=== PATIENT | female | born 2000 | race Caucasian/White ===

== ENCOUNTER → 2020-01-24 | Outpatient (REF) | payer OTHER, MEDICAID | LOC: M PLALAB 14:03 | PROVIDERS: ATTEND Advanced Practice Midwife | DX: N91.2 Amenorrhea, unspecified (principal) ==

== ENCOUNTER → 2020-01-26 | Outpatient (REF) | payer OTHER, MEDICAID | LOC: M LABSMT 16:48 | PROVIDERS: ATTEND Advanced Practice Midwife | DX: N91.2 Amenorrhea, unspecified (principal) ==

== ENCOUNTER → 2020-01-28 | Outpatient (REF) | payer OTHER, MEDICAID | LOC: M PLALAB 15:05 | PROVIDERS: ATTEND Advanced Practice Midwife | DX: O20.0 Threatened abortion (principal); Z3A.00 Weeks of gestation of pregnancy not specified ==

== ENCOUNTER → 2020-01-31 | Outpatient (REF) | payer MEDICAID, OTHER | LOC: M PLALAB 12:20 | PROVIDERS: ATTEND Advanced Practice Midwife | DX: O20.0 Threatened abortion (principal); Z3A.00 Weeks of gestation of pregnancy not specified ==

== ENCOUNTER → 2020-02-01 | Outpatient (CLI) | payer OTHER, MEDICAID | LOC: M LABSMTC 09:36 | PROVIDERS: ATTEND Anesthesiology | DX: Z01.812 Encounter for preprocedural laboratory examination (principal); Z20.828 Contact with and (suspected) exposure to other viral communicable diseases ==

== ENCOUNTER 2020-02-02 06:00 | Day surgery (SDC) | payer OTHER ==
[~2020-02-02] VITALS: Ht 157.5 cm; Wt 54.0 kg
[2020-02-02 06:39] LABS: HEMATOCRIT 37.9 % (36.0-47.0); HEMOGLOBIN 12.7 g/dl (12.0-15.5); MEAN CORPUSCULAR HEMOGLOBIN 28.5 pg (27.0-33.0); MEAN CORPUSCULAR HGB CONC 33.5 g/dl (32.0-36.5); PLATELET COUNT, AUTOMATED 265 10^3/uL (150-450); RED BLOOD COUNT 4.46 10^6/uL (4.00-5.40); WHITE BLOOD COUNT 6.8 10^3/uL (4.0-10.0)
[2020-02-02] MEDS ORDERED: LR 1,000 ML IV ONE (07:00)
[2020-02-02] MEDS ORDERED: LIDOCAINE 1% SDV 30ML VIAL As Ordered ONE (07:15)
[2020-02-02] MEDS ORDERED: LIDOCAINE 2% 100MG/5ML SDV (FOR ANES.) As Ordered ONE (07:33)
[2020-02-02] MEDS ORDERED: ONDANSETRON 4MG/2ML VIAL As Ordered ONE (07:33)
[2020-02-02] MEDS ORDERED: fentaNYL 100 MCG/2 ML INJECTION (J3010) As Ordered ONE (07:33)
[2020-02-02] MEDS ORDERED: propofoL 200 MG/20 ML VIAL As Ordered ONE (07:33)
[2020-02-02] MEDS ORDERED: MIDAZOLAM INJ 2MG/2ML VIAL (J2250 PER 1MG) As Ordered ONE (07:33)
[2020-02-02] MEDS ORDERED: dexameTHASONE 4 MG/ML 1ML VIAL (J1100 PER 1MG) As Ordered ONE (07:33)
[2020-02-02] MEDS ORDERED: KETOROLAC 60MG 2ML VIAL As Ordered ONE (08:00)
[2020-02-02] MEDS ORDERED: METHYLERGONOVINE MALEATE 0.2 MG/ML VIAL (J2210) As Ordered ONE (08:19)
[2020-02-02] MEDS ORDERED: SILVER NITRATE APPLICATOR As Ordered ONE (08:22)
[2020-02-02] MEDS ORDERED: LR 1,000 ML IV SCH (09:15)
[2020-02-02] MEDS ORDERED: fentaNYL 100 MCG/2 ML INJECTION (J3010) IV PRN (09:15)
[2020-02-02] MEDS ORDERED: oxyCODONE 5MG TAB PO PRN (09:15)
[2020-02-02] MEDS ORDERED: ONDANSETRON 4MG/2ML VIAL IV PRN (09:15)
[2020-02-02] MEDS ORDERED: HYDROMORPHONE HCL 0.5 MG/ 0.5 ML SYRINGE (J1170 PER 1) IV PRN (09:15)
[2020-02-02 10:05] VITALS: BP 111/52
--- NOTE | 2020-02-02 14:18 | ROOPDOC ---
[facility] Report Of Operation Report of Operation DATE OF PROCEDURE: 02/02/20 DATE OF PROCEDURE: 12/24/2017 PREOPERATIVE DIAGNOSIS: Intrauterine embryonic demise. POSTOPERATIVE DIAGNOSIS: Intrauterine embryonic demise. PROCEDURE: Dilation with suction and curettage. SURGEON: Marian Oro MD PROSTHETIC LAB TECHNICIAN: None. ANESTHESIA: General via laryngeal mask airway. ESTIMATED BLOOD LOSS: 100 mL. INTRAVENOUS FLUIDS: 1 liter of lactated Ringer solution. URINE OUTPUT: Was not obtained. PREOPERATIVE ANTIBIOTICS: None. OPERATIVE FINDINGS: Patient sounded to approximately 9 cm, moderate amounts of tissue obtained on suction and curettage. SPECIMENS: Products of conception. DESCRIPTION OF OPERATION: After informed consent was obtained and written consent was reviewed, the patient was taken to the operating room where general via laryngeal mask airway anesthesia was obtained. She was then placed in the lithotomy position, was prepped and draped in a normal sterile fashion. A time-out in the operating room was then performed identifying the patient, procedure to be performed as well as drug allergies. A bivalve speculum was then placed revealing the cervix. The anterior lip of the cervix was grasped with a single-tooth tenaculum. The uterus was then sounded to 9 cm. The cervix was then sequentially dilated using Hanks dilators. A #9 curved suction curette was then advanced through the cervical os to the level of the fundus. This was attached to suction. Suction was then deployed. The uterus was curetted in a 360 degree fashion. A moderate amount of tissue was obtained. The suction curette was then removed. Sharp curettage was then advanced through the cervical os. The uterus was then again curetted in a 360 degrees fashion. A final pass of the suction curette was then performed productive of only minimal amounts of blood. The single-tooth tenaculum was then removed. Tenaculum sites were noted to be hemostatic. The speculum was removed. The patient was then taken out of lithotomy position, was awakened from general anesthesia and taken to recovery in stable condition. Counts were correct. MARIAN ORO MD. Feb 02, 2020 14:18
[2020-02-02] MEDS ORDERED: KETOROLAC 30 MG/ML 1ML VIAL IV SCH (16:00)
== END 2020-02-02 10:05 | disposition home or self-care (01) ==
LOC: M SDC 06:00
PROVIDERS: ATTEND Obstetrics & Gynecology
DX: O02.1 Missed abortion (principal)
CPT/HCPCS: 36415; 59820; 85027; 86850; 86900; 86901; 88305; J1100; J1885; J2210; J2250; J2405; J3010

== ENCOUNTER → 2020-02-17 | Outpatient (REF) | payer MEDICAID, OTHER | LOC: M PLALAB 08:43 | PROVIDERS: ATTEND Obstetrics & Gynecology | DX: Z48.89 Encounter for other specified surgical aftercare (principal) ==

== ENCOUNTER → 2020-06-05 | Outpatient (REF) | payer OTHER, MEDICAID ==
[2020-06-05 11:29] LABS: CHOLESTEROL RISK RATIO 2.381 (<5)
== END ==
LOC: M SFHCPLAZ 09:13
PROVIDERS: ATTEND Family Medicine
DX: Z13.220 Encounter for screening for lipoid disorders (principal)

== ENCOUNTER → 2020-06-26 | Outpatient (REF) | payer OTHER ==
[2020-06-26 13:32] LABS: HCG, SERUM QUALITATIVE NEGATIVE (NEGATIVE)
== END ==
LOC: M SFHCPLAZ 09:03
PROVIDERS: ATTEND Family Medicine
DX: Z00.00 Encounter for general adult medical examination without abnormal findings (principal)

== ENCOUNTER 2020-07-23 10:42 | Emergency (ER) | payer OTHER ==
[~2020-07-23] VITALS: Ht 157.5 cm; Wt 48.8 kg
[2020-07-23 11:35] LABS: BASO % 0.4 % (0.0-1.0); EOS # 0.1 10^3/uL (0.0-0.5); EOS % 1.7 % (0.0-3.0); HEMATOCRIT 42.3 % (36.0-47.0); HEMOGLOBIN 13.8 g/dl (12.0-15.5); LYMPH # 1.4 10^3/uL (1.5-5.0); LYMPH % 30.1 % (24.0-44.0); MEAN CORPUSCULAR HEMOGLOBIN 28.2 pg (27.0-33.0); MEAN CORPUSCULAR HGB CONC 32.6 g/dl (32.0-36.5); MEAN CORPUSCULAR VOLUME 86.5 fl (80.0-96.0); MONO # 0.5 10^3/uL (0.0-0.8); MONO % 11.4 % (2.0-8.0); NEUTROPHILS # 2.6 10^3/uL (1.5-8.5); NEUTROPHILS % 56.2 % (36.0-66.0); PLATELET COUNT, AUTOMATED 256 10^3/uL (150-450); RED BLOOD COUNT 4.89 10^6/uL (4.00-5.40); WHITE BLOOD COUNT 4.7 10^3/uL (4.0-10.0)
[2020-07-23 12:03] LABS: ALBUMIN 4.1 GM/DL (3.2-5.2); ALT/SGPT 15 U/L (12-78); BILIRUBIN,DIRECT 0.2 MG/DL (0.0-0.2); BILIRUBIN,TOTAL 0.7 MG/DL (0.2-1.0); BLOOD UREA NITROGEN 10 MG/DL (7-18); CALCIUM LEVEL 9.3 MG/DL (8.5-10.1); CARBON DIOXIDE LEVEL 28 MEQ/L (21-32); CHLORIDE LEVEL 110 MEQ/L (98-107); CREATININE FOR GFR 0.59 MG/DL (0.55-1.30); GLUCOSE, FASTING 60 MG/DL (70-100); LIPASE 125 U/L (73-393); POTASSIUM SERUM 4.5 MEQ/L (3.5-5.1); SODIUM LEVEL 142 MEQ/L (136-145); TOTAL PROTEIN 6.9 GM/DL (6.4-8.2)
[2020-07-23 12:23] LABS: HCG, SERUM QUALITATIVE NEGATIVE (NEGATIVE)
--- NOTE | 2020-07-23 13:15 | REP ---
INDICATION: r sided pelvic pain, hx ovarian cysts. COMPARISON: None. TECHNIQUE: Transabdominal scanning performed. FINDINGS: Uterine dimensions are 7.0 x 3.3 x 6.5 cm. Endometrial echo is 6 mm in AP dimension and centrally placed. The bladder measures 2.3 x 1.9 x 4.2cm. The right ovary has dimensions of 2.0 x 1.6 x 1.6 cm. It's Doppler flow is normal with a resistive index of 0.61. The left ovary dimensions are 2.7 x 3.1 x 3.0 cm. It's Doppler flow was normal with resistive index of 0.41. Dominant follicles in the left ovary measured 1.8 x 1.6 x 1.8 cm and 1.9 x 1.8 x 2.4 cm. There is trace free fluid in the cul-de-sac. IMPRESSION: Two dominant follicles left ovary. Trace free fluid. No torsion. <Electronically signed by Cedric Stallworth > 07/23/20 [id number]
[2020-07-23 14:10] VITALS: BP 95/58
== END 2020-07-23 14:16 | disposition home or self-care (01) ==
LOC: M ED 10:42
DX: R10.2 Pelvic and perineal pain (principal)

== ENCOUNTER → 2021-07-20 | Outpatient (CLI) | payer OTHER ==
[~2021-07-20] MED LIST: IBUP-1022 PO; IBUP100S65 PO
[2021-07-20 17:03] LABS: BASO % 0.3 % (0.0-1.0); EOS % 0.3 % (0.0-3.0); HEMATOCRIT 34.8 % (36.0-47.0); HEMOGLOBIN 12.2 g/dl (12.0-15.5); LYMPH # 1.3 10^3/uL (1.5-5.0); LYMPH % 11.4 % (24.0-44.0); MEAN CORPUSCULAR HEMOGLOBIN 29.5 pg (27.0-33.0); MEAN CORPUSCULAR HGB CONC 35.1 g/dl (32.0-36.5); MEAN CORPUSCULAR VOLUME 84.1 fl (80.0-96.0); MONO # 0.7 10^3/uL (0.0-0.8); MONO % 6.4 % (2.0-8.0); NEUTROPHILS # 9.1 10^3/uL (1.5-8.5); NEUTROPHILS % 81.1 % (36.0-66.0); PLATELET COUNT, AUTOMATED 307 10^3/uL (150-450); RED BLOOD COUNT 4.14 10^6/uL (4.00-5.40); WHITE BLOOD COUNT 11.3 10^3/uL (4.0-10.0)
[2021-07-20 18:17] LABS: HEPATITIS C VIRUS ABY INDEX 0.1 INDEX (<0.8); HIV 1&2 SCREEN CENTAUR NEGATIVE (NEGATIVE)
[2021-07-20 18:39] LABS: GC DNA AMPLIFICATION NEGATIVE (NEGATIVE)
== END ==
LOC: M PLALAB 15:18
PROVIDERS: ATTEND Advanced Practice Midwife
DX: Z34.91 Encounter for supervision of normal pregnancy, unspecified, first trimester (principal)

== ENCOUNTER → 2021-08-21 | Outpatient (CLI) | payer OTHER | LOC: M WHC 08:02 | PROVIDERS: ATTEND Advanced Practice Midwife | DX: Z34.92 Encounter for supervision of normal pregnancy, unspecified, second trimester (principal); Z3A.00 Weeks of gestation of pregnancy not specified; Z53.9 Procedure and treatment not carried out, unspecified reason ==

== ENCOUNTER → 2021-09-04 | Outpatient (CLI) | payer OTHER | LOC: M WHC 07:28 | PROVIDERS: ATTEND Advanced Practice Midwife | DX: Z34.92 Encounter for supervision of normal pregnancy, unspecified, second trimester (principal) ==

== ENCOUNTER → 2021-10-25 | Outpatient (CLI) | payer OTHER ==
[2021-10-25 13:47] LABS: HEMATOCRIT 34.7 % (36.0-47.0); HEMOGLOBIN 11.6 g/dl (12.0-15.5); MEAN CORPUSCULAR HEMOGLOBIN 29.5 pg (27.0-33.0); MEAN CORPUSCULAR HGB CONC 33.4 g/dl (32.0-36.5); MEAN CORPUSCULAR VOLUME 88.3 fl (80.0-96.0); PLATELET COUNT, AUTOMATED 283 10^3/uL (150-450); RED BLOOD COUNT 3.93 10^6/uL (4.00-5.40); WHITE BLOOD COUNT 8.4 10^3/uL (4.0-10.0)
== END ==
LOC: M PLALAB 10:33
PROVIDERS: ATTEND Advanced Practice Midwife
DX: Z34.92 Encounter for supervision of normal pregnancy, unspecified, second trimester (principal)

== ENCOUNTER → 2021-12-25 | Outpatient (REF) | payer OTHER | LOC: M SFHCWAGY 10:25 | PROVIDERS: ATTEND Advanced Practice Midwife | DX: Z34.93 Encounter for supervision of normal pregnancy, unspecified, third trimester (principal) ==

== ENCOUNTER → 2022-01-30 | Outpatient (CLI) | payer OTHER | LOC: M LABSMTC 09:19 | PROVIDERS: ATTEND Anesthesiology | DX: Z01.812 Encounter for preprocedural laboratory examination (principal); Z20.822 Contact with and (suspected) exposure to COVID-19 ==

== ENCOUNTER 2022-02-02 03:07 | Inpatient (IN) | payer OTHER ==
[2022-02-02] VITALS (11 sets, daily range): BP systolic 97–130; BP diastolic 55–79
[~2022-02-02] VITALS: Ht 154.9 cm; Wt 66.7 kg
[2022-02-02] MEDS ORDERED: OXYTOCIN DRIP 30 UNITS in IV 1 EA IV PRN (04:15)
[2022-02-02] MEDS ORDERED: METHYLERGONOVINE MALEATE 0.2 MG/ML VIAL (J2210) IM PRN (04:15)
[2022-02-02] MEDS ORDERED: LIDOCAINE 1% MDV 20ML VIAL INFIL PRN (04:15)
[2022-02-02] MEDS ORDERED: LR 1,000 ML IV SCH (04:15)
[2022-02-02] MEDS ORDERED: TRANEXAMIC ACID INJection 1,000 MG in NS 100 ML IV PRN (04:15)
[2022-02-02] MEDS ORDERED: PROMETHAZINE 25MG/ML 1ML VIAL IV ONE (04:25)
[2022-02-02] MEDS ORDERED: BUTORPHANOL 2 MG/ML INJ (J0595) IV ONE (04:25)
[2022-02-02 04:55] LABS: HEMATOCRIT 33.7 % (36.0-47.0); MEAN CORPUSCULAR HEMOGLOBIN 26.4 pg (27.0-33.0); MEAN CORPUSCULAR HGB CONC 32.6 g/dl (32.0-36.5); MEAN CORPUSCULAR VOLUME 80.8 fl (80.0-96.0); PLATELET COUNT, AUTOMATED 314 10^3/uL (150-450); RED BLOOD COUNT 4.17 10^6/uL (4.00-5.40); WHITE BLOOD COUNT 8.8 10^3/uL (4.0-10.0)
[2022-02-02] MEDS ORDERED: OXYTOCIN 30 UNITS IN 0.9% NaCl 500ML IV BAG (J2590) As Ordered ONE (06:51)
[2022-02-02] MEDS ORDERED: DIBUCAINE 1% OINTMENT 30GM TOP PRN (07:45)
[2022-02-02] MEDS ORDERED: OXYTOCIN DRIP 30 UNITS in IV 1 EA IV SCH (08:00)
[2022-02-02] MEDS ORDERED: IBUPROFEN 600MG TAB PO PRN (08:00)
[2022-02-02] MEDS ORDERED: MOM 30ML SUSPENSION UDC PO PRN (08:00)
[2022-02-02] MEDS ORDERED: DOCUSATE SODIUM 100MG CAPSULE PO PRN (08:00)
[2022-02-02] MEDS ORDERED: IBUPROFEN 800 MG TAB PO PRN (08:00)
[2022-02-02] MEDS ORDERED: METHYLERGONOVINE MALEATE 0.2 MG TAB PO PRN (08:00)
[2022-02-02] MEDS ORDERED: ANUSOL HC CREAM 30GM TOP PRN (08:00)
[2022-02-02] MEDS ORDERED: ACETAMINOPHEN 500 MG TAB PO PRN (08:00)
[2022-02-02] MEDS ORDERED: RHOGAM 300 MCG (1500 IU) INJ (J2790) IM SCH (08:00)
[2022-02-02] MEDS ORDERED: ACETAMINOPHEN TAB 650MG DOSE (2X325MG) PO PRN (08:00)
[2022-02-02] MEDS: PRENATAL VITAMINS CHEWABLE TABLET PO SCH (09:00)
[2022-02-03 06:00] VITALS: BP 116/66
[2022-02-03] MEDS: PRENATAL VITAMINS CHEWABLE TABLET PO SCH (09:00)
[2022-02-04] MEDS ORDERED: MEASLES,MUMPS,RUBELLA VACCINE INJ (MMR-II) (90707) SC.IMMUN ONE (09:00)
== END 2022-02-03 14:18 | disposition home or self-care (01) | DRG 560 ==
LOC: M LDO 03:07 → M LDI 03:47 → M OBS 09:03
PROVIDERS: ADMIT Obstetrics & Gynecology; ATTEND Obstetrics & Gynecology
PROC: 10E0XZZ Delivery of Products of Conception, External Approach (ICD-10-PCS; principal; 2022-02-02)
PROC: 0KQM0ZZ Repair Perineum Muscle, Open Approach (ICD-10-PCS; 2022-02-02)
DX: O48.0 Post-term pregnancy (principal); Z37.0 Single live birth; Z3A.41 41 weeks gestation of pregnancy; O34.211 Maternal care for low transverse scar from previous cesarean delivery; O70.1 Second degree perineal laceration during delivery

== ENCOUNTER → 2022-06-26 | Outpatient (CLI) | payer OTHER ==
[2022-06-26 13:41] LABS: HEMOGLOBIN 12.9 g/dl (12.0-15.5); MEAN CORPUSCULAR HEMOGLOBIN 28.6 pg (27.0-33.0); MEAN CORPUSCULAR HGB CONC 33.9 g/dl (32.0-36.5); MEAN CORPUSCULAR VOLUME 84.3 fl (80.0-96.0); PLATELET COUNT, AUTOMATED 302 10^3/uL (150-450); RED BLOOD COUNT 4.51 10^6/uL (4.00-5.40); WHITE BLOOD COUNT 4.6 10^3/uL (4.0-10.0)
[2022-06-26 14:59] LABS: GC DNA AMPLIFICATION NEGATIVE (NEGATIVE)
[2022-06-27 17:25] LABS: HIV 1&2 SCREEN ATELLICA NEGATIVE (NEGATIVE)
== END ==
LOC: M PLALAB 10:23
PROVIDERS: ATTEND Advanced Practice Midwife
DX: O34.211 Maternal care for low transverse scar from previous cesarean delivery (principal); Z3A.00 Weeks of gestation of pregnancy not specified

== ENCOUNTER → 2022-08-29 | Outpatient (CLI) | payer OTHER | LOC: M WHC 12:58 | PROVIDERS: ATTEND Advanced Practice Midwife | DX: O34.211 Maternal care for low transverse scar from previous cesarean delivery (principal); Z3A.19 19 weeks gestation of pregnancy ==

== ENCOUNTER → 2022-11-05 | Outpatient (CLI) | payer OTHER ==
[2022-11-05 15:05] LABS: HEMATOCRIT 31.9 % (36.0-47.0); HEMOGLOBIN 10.3 g/dl (12.0-15.5); MEAN CORPUSCULAR HEMOGLOBIN 28.5 pg (27.0-33.0); MEAN CORPUSCULAR HGB CONC 32.3 g/dl (32.0-36.5); MEAN CORPUSCULAR VOLUME 88.1 fl (80.0-96.0); PLATELET COUNT, AUTOMATED 276 10^3/uL (150-450); RED BLOOD COUNT 3.62 10^6/uL (4.00-5.40); WHITE BLOOD COUNT 8.5 10^3/uL (4.0-10.0)
[2022-11-05 17:13] LABS: GC DNA AMPLIFICATION NEGATIVE (NEGATIVE)
== END ==
LOC: M PLALAB 09:28
PROVIDERS: ATTEND Specialist
DX: Z34.82 Encounter for supervision of other normal pregnancy, second trimester (principal); Z3A.00 Weeks of gestation of pregnancy not specified

== ENCOUNTER → 2022-11-05 | Outpatient (CLI) | payer OTHER ==
[2022-11-05 15:02] LABS: BASO % 0.4 % (0.0-1.0); EOS # 0.1 10^3/uL (0.0-0.5); EOS % 0.8 % (0.0-3.0); HEMATOCRIT 31.1 % (36.0-47.0); HEMATOCRIT 31.9 % (36.0-47.0); HEMOGLOBIN 10.4 g/dl (12.0-15.5); LYMPH # 1.3 10^3/uL (1.5-5.0); LYMPH % 15.6 % (24.0-44.0); MEAN CORPUSCULAR HEMOGLOBIN 28.8 pg (27.0-33.0); MEAN CORPUSCULAR HGB CONC 32.6 g/dl (32.0-36.5); MEAN CORPUSCULAR VOLUME 88.4 fl (80.0-96.0); MONO # 0.7 10^3/uL (0.0-0.8); MONO % 7.7 % (2.0-8.0); NEUTROPHILS # 6.4 10^3/uL (1.5-8.5); PLATELET COUNT, AUTOMATED 276 10^3/uL (150-450); RED BLOOD COUNT 3.61 10^6/uL (4.00-5.40); WHITE BLOOD COUNT 8.5 10^3/uL (4.0-10.0)
[2022-11-05 15:05] LABS: ALBUMIN 2.8 G/DL (3.2-5.2); ALKALINE PHOSPHATASE 98 U/L (46-116); ALT/SGPT < 9 U/L (7.0-40); AST/SGOT < 8 U/L (<34); BILIRUBIN,TOTAL 0.3 MG/DL (0.3-1.2); BLOOD UREA NITROGEN 7 MG/DL (9-23); CALCIUM LEVEL 8.2 MG/DL (8.5-10.1); CARBON DIOXIDE LEVEL 24 MMOL/L (20-31); CHLORIDE LEVEL 108 MMOL/L (98-107); CHOLESTEROL LEVEL 188 MG/DL (<200); CHOLESTEROL RISK RATIO 3.05 (<5); CREATININE FOR GFR 0.44 MG/DL (0.55-1.30); GLOMERULAR FILTRATION RATE > 60.0 (>60); GLUCOSE, FASTING 119 MG/DL (60-100); HDL CHOLESTEROL 61.5 MG/DL (>40); LDL CHOLESTEROL 96.1 MG/DL (<100); NON-HDL-C 126.5 MG/DL; POTASSIUM SERUM 3.7 MMOL/L (3.5-5.1); SODIUM LEVEL 141 MMOL/L (136-145); TOTAL PROTEIN 5.8 G/DL (5.7-8.2); TRIGLYCERIDES LEVEL 152 MG/DL (<150)
[2022-11-05 15:09] LABS: THYROID STIMULATING HORMONE 1.679 uIU/ML (0.55-4.78); TOTAL 25(OH) VITAMIN D 31.2 NG/ML (20.0-100.0)
[2022-11-05 15:21] LABS: HEMOGLOBIN A1c 4.7 % (4.0-6.0)
== END ==
LOC: M PLALAB 09:32
PROVIDERS: ATTEND Student in an Organized Health Care Education/Training Program
DX: O26.892 Other specified pregnancy related conditions, second trimester (principal); R79.89 Other specified abnormal findings of blood chemistry; Z13.220 Encounter for screening for lipoid disorders; Z13.1 Encounter for screening for diabetes mellitus; Z13.29 Encounter for screening for other suspected endocrine disorder; Z3A.16 16 weeks gestation of pregnancy

== ENCOUNTER → 2022-12-24 | Outpatient (REF) | payer OTHER | LOC: M PLALAB 08:35 | PROVIDERS: ATTEND Advanced Practice Midwife | DX: Z36.85 Encounter for antenatal screening for Streptococcus B (principal) ==

== ENCOUNTER 2023-01-13 02:57 | Inpatient (IN) | payer OTHER ==
[2023-01-13] VITALS (11 sets, daily range): BP systolic 100–129; BP diastolic 53–67; TEMP 96.8; O2SAT 98–99
[~2023-01-13] VITALS: Ht 157.5 cm; Wt 64.2 kg
[2023-01-13] MEDS ORDERED: HOME MED LIST COMPLETE! XX SCH (03:40)
[2023-01-13] MEDS ORDERED: LACTATED RINGER'S 1000 ML IV STA (03:44)
[2023-01-13] MEDS ORDERED: BICITRA 30ML SOLN UDC PO ONE (03:45)
[2023-01-13] MEDS ORDERED: ceFAZolin SOD 2 GM in IV 1 EA IV ONE (03:45)
[2023-01-13] MEDS ORDERED: LR 1,000 ML IV SCH (03:45)
[2023-01-13 04:07] LABS: HEMOGLOBIN 10.2 g/dl (12.0-15.5); MEAN CORPUSCULAR HEMOGLOBIN 25.7 pg (27.0-33.0); MEAN CORPUSCULAR HGB CONC 32.9 g/dl (32.0-36.5); MEAN CORPUSCULAR VOLUME 78.1 fl (80.0-96.0); PLATELET COUNT, AUTOMATED 300 10^3/uL (150-450); RED BLOOD COUNT 3.97 10^6/uL (4.00-5.40); WHITE BLOOD COUNT 15.3 10^3/uL (4.0-10.0)
[2023-01-13] MEDS ORDERED: KETOROLAC 60MG 2ML VIAL As Ordered ONE (04:10)
[2023-01-13] MEDS ORDERED: ONDANSETRON 4MG 2ML VIAL As Ordered ONE (04:10)
[2023-01-13] MEDS ORDERED: OXYTOCIN INJ 10UNITS/ML 1ML VIAL As Ordered ONE ×3 (04:10→05:39)
[2023-01-13] MEDS ORDERED: fentaNYL 100 MCG/2 ML INJECTION As Ordered ONE (04:11)
[2023-01-13] MEDS ORDERED: MORPHINE PRES-FREE INJ 10 MG/10 ML VIAL As Ordered ONE (04:11)
[2023-01-13] MEDS ORDERED: METHYLERGONOVINE MALEATE 0.2MG/ML 1ML VIAL IM PRN (04:40)
[2023-01-13] MEDS ORDERED: PERCOCET 5MG/325MG TAB PO PRN ×2 (04:40)
[2023-01-13] MEDS ORDERED: MOM 30ML SUSPENSION UDC PO PRN (04:40)
[2023-01-13] MEDS ORDERED: OXYTOCIN DRIP 30 UNITS in IV 1 EA IV SCH (04:40)
[2023-01-13] MEDS ORDERED: SIMETHICONE 80MG CHEW TAB PO PRN (04:40)
[2023-01-13] MEDS ORDERED: ONDANSETRON 4MG 2ML VIAL IV PRN (04:40)
[2023-01-13] MEDS ORDERED: RHOGAM 300MCG (1500IU) INJ IM SCH (04:40)
[2023-01-13] MEDS: LR 1,000 ML IV SCH ×2 (04:40→12:00)
[2023-01-13] MEDS ORDERED: AZITHROMYCIN INJ 500 MG, VIAL MATE ADAPTER 1 EACH in NS 250 ML IV ONE (05:00)
[2023-01-13] MEDS ORDERED: PHENYLephrine 500MCG 5ML (100MCG/ML) SYRINGE As Ordered ONE (05:01)
[2023-01-13] MEDS ORDERED: ePHEDrine SULFATE 25 MG/5 ML(5MG/ML) SYRINGE As Ordered ONE (05:01)
[2023-01-13] MEDS ORDERED: OXYTOCIN 30UNITS IN 0.9% NaCl 500ML IV BAG As Ordered ONE (06:41)
[2023-01-13] MEDS: DOCUSATE SODIUM 100MG CAPSULE PO SCH ×2 (09:00→22:30)
[2023-01-13] MEDS: PRENATAL VITAMINS CHEWABLE TABLET PO SCH (09:00)
[2023-01-13] MEDS: KETOROLAC 30 MG/ML 1ML VIAL IV SCH ×3 (10:24→22:30)
[2023-01-14 02:00] VITALS: BP 105/52; O2SAT 99
[2023-01-14] MEDS ORDERED: IBUPROFEN 800 MG TAB PO SCH (06:00)
[2023-01-14 06:46] LABS: MEAN CORPUSCULAR HEMOGLOBIN 26.2 pg (27.0-33.0); MEAN CORPUSCULAR VOLUME 79.4 fl (80.0-96.0); PLATELET COUNT, AUTOMATED 202 10^3/uL (150-450); RED BLOOD COUNT 2.48 10^6/uL (4.00-5.40); WHITE BLOOD COUNT 11.5 10^3/uL (4.0-10.0)
[2023-01-14 06:58] LABS: HEMATOCRIT 19.7 % (36.0-47.0); HEMOGLOBIN 6.5 g/dl (12.0-15.5)
[2023-01-14] MEDS: DOCUSATE SODIUM 100MG CAPSULE PO SCH (07:54)
[2023-01-14] MEDS: PRENATAL VITAMINS CHEWABLE TABLET PO SCH (07:54)
[2023-01-14 10:00] VITALS: BP 129/60; O2SAT 97
[2023-01-14] MEDS ORDERED: IBUP80TA PO (12:51)
[2023-01-14] MEDS ORDERED: OXYC1TAB23 PO ×2 (12:51→12:58)
[2023-01-14] MEDS ORDERED: DOCUSATE SOD LIQ 100MG/10ML UDC GT SCH (21:00)
[2023-01-15] MEDS ORDERED: MEASLES,MUMPS,RUBELLA VACCINE INJ (MMR-II) SC.IMMUN ONE (09:00)
== END 2023-01-14 13:38 | disposition home or self-care (01) | DRG 540 ==
LOC: M LDO 02:57 → M LDI 03:34 → M OBS 07:45
PROVIDERS: ADMIT Obstetrics & Gynecology; ATTEND Obstetrics & Gynecology
PROC: 0UB70ZZ Excision of Bilateral Fallopian Tubes, Open Approach (ICD-10-PCS; 2023-01-13)
PROC: 10D00Z1 Extraction of Products of Conception, Low, Open Approach (ICD-10-PCS; principal; 2023-01-13 04:31)
DX: O34.211 Maternal care for low transverse scar from previous cesarean delivery (principal); O32.1XX0 Maternal care for breech presentation, not applicable or unspecified; Z37.0 Single live birth; Z3A.38 38 weeks gestation of pregnancy; Z30.2 Encounter for sterilization

== ENCOUNTER → 2024-12-30 | Outpatient (CLI) | payer OTHER ==
[~2024-12-30] MED LIST changes: -IBUP-1022 PO; +IBUP600T42 PO; +IBUP80TA PO; +OXYC1TAB23 PO
[2024-12-30 17:39] LABS: BASO # 0.0 10^3/uL (0.0-0.2); BASO % 0.8 % (0.0-1.0); EOS # 0.0 10^3/uL (0.0-0.5); EOS % 0.6 % (0.0-3.0); LYMPH # 1.4 10^3/uL (1.5-5.0); LYMPH % 26.4 % (24.0-44.0); MONO # 0.6 10^3/uL (0.0-0.8); MONO % 11.0 % (2.0-8.0); NEUTROPHILS # 3.2 10^3/uL (1.5-8.5); NEUTROPHILS % 60.8 % (36.0-66.0); PLATELET COUNT, AUTOMATED 260 10^3/uL (150-450)
[2024-12-30 18:05] LABS: ALT/SGPT 14 U/L (7.0-40); AST/SGOT 11 U/L (<34); CALCIUM LEVEL 9.5 MG/DL (8.5-10.1); CARBON DIOXIDE LEVEL 27 MMOL/L (20-31); CHLORIDE LEVEL 105 MMOL/L (98-107); CREATININE FOR GFR 0.70 MG/DL (0.55-1.30); GLOMERULAR FILTRATION RATE > 90.0 (>60); IRON (FE) 93 UG/DL (50-170); PERCENT SATURATION 28.7 % (13.2-45.0); POTASSIUM SERUM 4.4 MMOL/L (3.5-5.1); SODIUM LEVEL 143 MMOL/L (136-145)
[2024-12-30 18:08] LABS: TOTAL 25(OH) VITAMIN D 32.6 NG/ML (20.0-100.0)
[2024-12-30 18:09] LABS: VITAMIN B12 LEVEL 719 PG/ML (211-911)
== END ==
LOC: M LABDRWAD 11:39
PROVIDERS: ATTEND Nurse Practitioner Family
DX: D50.9 Iron deficiency anemia, unspecified (principal); R53.82 Chronic fatigue, unspecified